=== PATIENT | male | born 1970 | race Caucasian/White ===

== ENCOUNTER 2019-05-29 12:52 | Inpatient (IN) | payer OTHER, MEDICAID ==
[~2019-05-29] VITALS: Ht 175.3 cm; Wt 73.5 kg
[2019-05-29 12:57] VITALS: Ht 175.3 cm; Wt 73.5 kg
--- NOTE | 2019-05-29 13:04 | NUR ---
PT RECEIVED TO ROOM 9 HERE FROM [facility], HE HAS BEEN AT [facility] FOR 1 WEEK VOLUNTEER STATUS. PT COMES TODAY TO [facility] FOR ABD PAIN THAT RADIATES FROM RIGHT LOWER TESTICLE TO RIGHT LOWER ABD. PAIN ON PALP, HX CIRRHOSIS LAST DRANK 1 WEEK AGO,PT ADMITS TO BEING HOMELESS FROM [address]. PT IS CALM AND COOPERATIVE AT THIS TIME AWAITING FOR MD TO [facility].
[2019-05-29 13:35] LABS: BASOPHIL % 0.7 % (0-2); PLATELET COUNT 284 x10^3mcL (130-400); RED CELL DISTRIBUTION WIDTH 14.2 % (11.5-14.5)
[2019-05-29 13:39] LABS: microscopic required? NO
[2019-05-29 13:41] LABS: CALCIUM 8.7 mg/dL (8.5-10.1); CARBON DIOXIDE 31.2 mmol/L (21-32); CHLORIDE SERUM 102 mmol/L (98-107); CREATININE SERUM 0.6 mg/dL (0.7-1.3); GFR1 > 60 mL/min; GLUCOSE SERUM 91 mg/dL (74-106); POTASSIUM SERUM 4.1 mmol/L (3.5-5.1); SODIUM SERUM 140 mmol/L (136-145)
[2019-05-29 13:44] LABS: ALBUMIN 3.5 g/dL (3.4-5.0); ALKALINE PHOSPHATASE 87 U/L (46-116); ALT/SGPT 27 U/L (16-63); AMYLASE 53 U/L (25-115); AST/SGOT 12 U/L (15-37); BILIRUBIN TOTAL 0.1 mg/dL (0.20-1.00); LIPASE 91 IU/L (73-393); TOTAL PROTEIN, SERUM 6.7 g/dL (6.4-8.2)
[2019-05-29 13:49] LABS: urine erythrocyte NEGATIVE (NEGATIVE)
--- NOTE | 2019-05-29 14:37 | NUR ---
PT C/O PAIN, DR. SHERMAN MADE AWARE. SEE EMAR FOR DETAILS OF ORDER.
[2019-05-29] MEDS ORDERED: RISPERDAL0.5 MG (14:52)
[2019-05-29] MEDS ORDERED: ATIVAN0.5 M1 (14:52)
[2019-05-29] MEDS ORDERED: PROZAC40 MG (14:53)
--- NOTE | 2019-05-29 14:58 | NUR ---
HAND-OFF REPORT TO ALISON DUENAS FROM MED/SURG TO ASSUME CARE.
--- NOTE | 2019-05-29 15:15 | NUR ---
PT SLEEPING AND EASILY AROUSABLE. HR=76 RR=13 02 SATS=93% ON RA. WILL CONTINUE TO MONITOR.
--- NOTE | 2019-05-29 15:35 | NUR ---
RECIEVED PT FROM ER VIA [facility] ACCOMPANIED BY JANIE CORTEZ. PT A/O X3 WITH SOME CONFUSION. LUNGS CTA BILAT. BOWEL SOUNDS ACTIVE. PT REPORTS INTERMMITENT ABD PAIN UPON MOVEMENT. MEDICATED WITH MORPHINE 4MG IN ER. VOIDS FREELY WITH BRP. GENERALIZED WEAKNESS. SKIN CDI. NS RUNNING AT 70/HR IN RAC. IV INTACT AND PATENT WITH NO REDNESS OR INFLAMMATION. SAFETY PRECAUTIONS IN PLACE, ORIENTED TO ROOM, CALL LIGHT WITHIN REACH, WILL MONITOR.
[2019-05-29 15:42] VITALS: BP 145/87
--- NOTE | 2019-05-29 17:09 | NUR ---
RECIEVED CALL FROM DR SARABIA, PT WILL BE SCHEDULED FOR SURGERY IN THE MORNING AND IS TO BE NPO ADFTER MIDNIGHT TONIGHT. NEW ORDER FOR MIRALAX BEFORE DINNER TONIGHT TO BE PUT IN BY JUAN J. ORDER CARRIED THROUGH. CHARGE NOTIFIED.
--- NOTE | 2019-05-29 17:40 | NUR ---
PT C/O 06/15 ABD PAIN, MEDICATED WITH MORPHINE PER EMAR. WILL REASSESS.
[2019-05-29 18:16] VITALS: BP 149/84
--- NOTE | 2019-05-29 18:24 | NUR ---
PT C/O ANXIETY, MEDICATED WITH ATIVAN PER EMAR. WILL REASSESS.
--- NOTE | 2019-05-29 18:25 | NUR ---
PT STABLE AT THIS TIME. VS WNL AND NO PAIN, DISTRESS, OR SOB NOTED. IN INTACT AND PATENT WITH NO REDNESS OR INFLAMMATION. NS RUNNING AT 70/HR. PT TO BE NPO AFTER MIDNIGHT FOR SURGERY TOMORROW. SAFERTY PRECAUTIONS IN PLACE, CALL LIGHT WITHIN REACH, WILL ENDORSE TO NIGHT NURSE.
--- NOTE | 2019-05-29 19:29 | NUR ---
RECEIVED PATIENT IN BED AWAKE, ALERT AND ORIENTED WITH NO C/O PAIN AND DISCOMFORT AT THIS TIME. BREATHING EASYA ND NONLABOR SATTING AT 96% RA, ABDOMEN SOFT AND NONTENDER WIT ACTIVE BS. NPO POST MIDNIGHT AND INSTRUCTION GIVEN, PATIENT VERBALIZED UNDERSTANDING. IV TO T RAC INTACT AND INFUSING WELL. WILL CONTINUE TO MONITOR. CALL LIGHT WITHIN REACH.
[2019-05-29 20:59] VITALS: BP 135/83
--- NOTE | 2019-05-30 00:10 | NUR ---
APPEARS SLEEPING WITH EYES CLOSED, BREATHING EASY AND NONLABOR. WILL CONTINUE TO MONITOR.
[2019-05-30 05:12] VITALS: BP 102/69
--- NOTE | 2019-05-30 05:23 | NUR ---
SLEPT AT LONG INTERVALS, DENIES PAIN AND DISCOMFORT THE ENTIRE SHIFT. NO SIGNIFICANT CHANGES IN CONDITION NOTED.
[2019-05-30 06:33] LABS: BASOPHIL % 0.4 % (0-2); PLATELET COUNT 285 x10^3mcL (130-400); RED CELL DISTRIBUTION WIDTH 14.1 % (11.5-14.5)
--- NOTE | 2019-05-30 07:00 | NUR ---
RECEIVED BEDSIDE REPORT FROM AUTOMATIC PILOT MECHANIC NURSE AT THIS TIME. PATIENT RESTING COMFORTABLY IN BED. NO APPARENT DISTRESS OR DISCOMFORT NOTED. BREATHING EVEN AND UNLABORED. NO RESPIRATORY DISTRESS NOTED. PATIENT DENIES SHORTNESS OF BREATH. PATIENT DENIES CHEST PAIN/PRESSURE AT THIS TIME. IV PATENT AND INTACT. ALL QUESTIONS AND CONCERNS ADDRESSED. ALL NEEDS ATTENDED TO. WILL CONTINUE TO MONITOR
--- NOTE | 2019-05-30 07:50 | NUR ---
PATIENT DOWN FOR PROCEDURE AT THIS TIME. ALL NEEDS ATTENDED TO
--- NOTE | 2019-05-30 09:52 | NUR ---
RECEIVED REPORT FROM OR NURSE CHAVEZ AT THIS TIME. ALL QUESTIONS AND CONCERNS ADDRESSED. ALL NEEDS ATTENDED TO. AWAITING PATIENT ON [facility] FLOOR
[2019-05-30 09:56] LABS: CALCIUM 8.7 mg/dL (8.5-10.1); CARBON DIOXIDE 24.6 mmol/L (21-32); CHLORIDE SERUM 106 mmol/L (98-107); CREATININE SERUM 0.6 mg/dL (0.7-1.3); GFR1 > 60 mL/min; GLUCOSE SERUM 82 mg/dL (74-106); SODIUM SERUM 142 mmol/L (136-145)
--- NOTE | 2019-05-30 10:52 | NUR ---
RECEIVED PATIENT AT THIS TIME FROM OR NURSE. PATIENT ABLE TO AMBULATE FROM RNEY TO BED. 1 INCISION NOTED TO RIGHT INGUINAL WITH SUTURES AND DAVID. NO BLEEDING NOTED. VITAL SIGNS STABLE 115/64 (79) 93% ON ROOM AIR, 18RR 98.1 AND REPORTS 0/10 PAIN. ALL QUESTIONS AND CONCERNS ADDRESSED. ALL NEEDS ATTENDED TO. WILL CONTINUE TO MONITOR
[2019-05-30 10:55] VITALS: BP 115/64
--- NOTE | 2019-05-30 10:58 | NUR ---
ALL MORNING MEDICATIONS ADMINISTERED. PATIENT TOLERATED WELL. NO ADVERSE EFFECTS NOTED. NO APPARENT DISTRESS OR DISCOMFORT NOTED. ALL NEEDS ATTENDED TO. WILL CONTINUE TO MONITOR
--- NOTE | 2019-05-30 12:52 | NUR ---
PATIENT C/O ANXIETY AT THIS TIME. PATIENT MEDICATED WITH VALIUM PRN. PATIENT TOLERATED MEDICATION WELL. NO ADVERSE EFFECTS NOTED. ALL NEEDS ATTENDED TO. WILL CONTINUE TO MONITOR
--- NOTE | 2019-05-30 15:49 | NUR ---
PATIENT C/O ANXIETY AT THIS TIME. PATIENT OFFERED ATIVAN PRN, BUT PATIENT DENIES ATIVAN AND STATES THERE WOULD BE NO POINT IN TAKING IT BECAUSE IT DOES NOT WORK. EXPLAINED TO PATIENT VALIUM IS NOT DUE UNTIL AROUND 2100 TONIGHT. WILL NOTIFY BRINE SUPERVISOR MARCEL AT THIS TIME.
--- NOTE | 2019-05-30 17:50 | NUR ---
PATIENT SITTING UP IN BED EATING DINNER AT THIS TIME. PATIENT TOLERATING FULL LIQUID DIET WELL. NO APPARENT DISTRESS OR DISCOMFORT NOTED. ALL NEEDS ATTENDED TO. WILL CONTINUE TO MONITOR
[2019-05-30 18:21] VITALS: BP 105/69
--- NOTE | 2019-05-30 18:32 | NUR ---
PATIENT RESTING COMFORTABLY IN BED AT THIS TIME. NO APPARENT DISTRESS OR DISCOMFORT NOTED. IV PATENT AND INTACT. ALL QUESTIONS AND CONCERNS ADDRESSED. ALL NEEDS ATTENDED TO. SAFETY PRECAUTIONS MAINTAINED. WILL ENDORSE ALL CARE TO DATA ENTRY MACHINE OPERATOR NURSE
--- NOTE | 2019-05-30 18:51 | NUR ---
PATIENT PULLED IV TO RAC OUT AT THIS TIME AND STATES IT WAS BOTHERING HIM. PATIENT STATES HE DOES NOT WANT ANOTHER IV AT THIS TIME AND TO TRY LATER. WILL ENDORSE TO VANSTONE MACHINE OPERATOR NURSE.
--- NOTE | 2019-05-30 19:46 | NUR ---
RECEIVED PATIENT IN BED AWAKE, ALERT AND ORIENTED WITH NO C/O POST OPERATIVE PAIN AT THIS TIME. BREATHING EASY AND NONLABOR SATTING AT 99% RA. ABDOMEN ROUND AND NONTENDER WITH ACTIVE BS, PATIENT PASSED GAS AND VOIDED AFTER SURGERY. SURGICAL INCISION TO RT INGUINAL AREA CDI WITH STITCHES AND STAPLED. IV TO RAC PULLED BY PATIENT AND TO REINSERT. WILL CONTINUE TO MONITOR. CALL LIGHT WITHIN REACH.
--- NOTE | 2019-05-30 20:40 | NUR ---
REINSERETD NEW IV TO RFA INTACT AND INFUSING WELL. DENIES POST OPERATIVE PAIN. WILL CONTINUE TO MONITOR.
[2019-05-30 21:43] VITALS: BP 102/55
--- NOTE | 2019-05-30 23:35 | NUR ---
APPEARS SLEEPING WITH EYS CLOSED AT THIS TIME. BREATHING EASY AND NONLABOR.
--- NOTE | 2019-05-31 05:09 | NUR ---
SLEPT FAIRLY DENIES POST OPERATIVE PAIN THE ENTIRE SHIFT. CHECKED AT INTERVALS FOR NEEDS AND SAFETY.
[2019-05-31 05:26] VITALS: BP 116/81
[2019-05-31 06:44] LABS: BASOPHIL % 1.6 % (0-2); PLATELET COUNT 275 x10^3mcL (130-400); RED CELL DISTRIBUTION WIDTH 14.2 % (11.5-14.5)
[2019-05-31 07:07] LABS: CALCIUM 9.2 mg/dL (8.5-10.1); CARBON DIOXIDE 29.6 mmol/L (21-32); CHLORIDE SERUM 105 mmol/L (98-107); CREATININE SERUM 0.6 mg/dL (0.7-1.3); GFR1 > 60 mL/min; GLUCOSE SERUM 83 mg/dL (74-106); SODIUM SERUM 144 mmol/L (136-145)
--- NOTE | 2019-05-31 08:00 | NUR ---
ALERT AND ORIENTED. BREATHING FREELY ON ROOM AIR. A LITTLE HIGH STRUNG. DENIES PAIN OR NEED FOR PAIN MED. RT INGUINAL SURGICAL INCISIN WITH DAVID GEE. NO DRAINAGE OR REDNESS NOTED. INDEPENDENT W ADL'S. REG DIET TOLERATED WELL. NS INFUSING 70 CC HOUR TO RT FA. VSS. CALL LIGHT WITHIN REACH.
[2019-05-31 08:16] VITALS: BP 122/67
[2019-05-31] MEDS ORDERED: IBUPROFEN400 MG PO (10:09)
[2019-05-31 13:47] VITALS: BP 122/67
--- NOTE | 2019-05-31 16:15 | NUR ---
PT GOING BACK TO [facility] VIA [facility]. IV DC'D. ALL DC INSTRUCTIONS REVIEWED WITH AND SIGNED BY PT. PACKET GIVEN TO [facility] COMPOSITION TILE LAYER. SPOKE WITH CAMACHO RE: PT BEING ACCEPTED BACK TO [facility] [place]. F/U SPENCER GIVEN FOR STAPLE REMOVAL.
== END 2019-05-31 16:23 | DRG 350 ==
LOC: ED 12:52 → MU 14:38
PROVIDERS: Emergency Medicine; Surgery; ADMIT General Practice
PROC: 0YU50JZ Supplement Right Inguinal Region with Synthetic Substitute, Open Approach (ICD-10-PCS; principal; 2019-05-30 08:30)
DX: K40.91 Unilateral inguinal hernia, without obstruction or gangrene, recurrent (principal); N17.0 Acute kidney failure with tubular necrosis; F33.8 Other recurrent depressive disorders; R45.851 Suicidal ideations; F15.10 Other stimulant abuse, uncomplicated; F12.10 Cannabis abuse, uncomplicated; K70.30 Alcoholic cirrhosis of liver without ascites; F10.20 Alcohol dependence, uncomplicated; Y90.0 Blood alcohol level of less than 20 mg/100 ml; F17.200 Nicotine dependence, unspecified, uncomplicated
CPT/HCPCS: C1781; G0378; J0330; J0690; J2175; J2250; J2270; J2405; J2704; J3010; J3490; J7030; J7120; Q0092